=== PATIENT | male | born 1990 | race African-American/Black ===

== ENCOUNTER 2020-11-21 09:40 | Day surgery (SDC) | payer OTHER ==
[~2020-11-21] VITALS: Ht 180.3 cm; Wt 184.8 kg
[2020-11-21] MEDS ORDERED: FENTANYL PF 100 MCG/2ML ONE ×2 (09:58→11:38)
[2020-11-21] MEDS ORDERED: MIDAZOLAM 1 MG/ML, 2ML ONE (09:58)
[2020-11-21 10:16] VITALS: BP 160/101
[2020-11-21] MEDS ORDERED: LACTATED RINGERS 1,000 ML IV SCH (10:30)
[2020-11-21] MEDS ORDERED: CHLORHEXIDINE 15 ML UDC PO ONE (10:30)
[2020-11-21] MEDS ORDERED: LIDOCAINE/PF 1%-EPI 1:200K, 30 ML ONE (10:54)
[2020-11-21] MEDS ORDERED: LIDOCAINE 1%, 20ML ONE (10:55)
[2020-11-21] MEDS ORDERED: LIDOCAINE/MPF 2%-EPI 1:200K, 20 ML ONE (10:55)
[2020-11-21] MEDS ORDERED: DEXAMETHASONE 4 MG/ML, 1ML ONE (11:17)
[2020-11-21] MEDS ORDERED: KETOROLAC 30 MG/1 ML ONE (11:17)
[2020-11-21] MEDS ORDERED: FENTANYL PF 100 MCG/2ML IV PRN (11:30)
[2020-11-21] MEDS ORDERED: ALBUTEROL SULFATE 2.5 MG/3 ML NPPB PRN (11:30)
[2020-11-21] MEDS ORDERED: MEPERIDINE/PF 25MG/0.5ML IVPush PRN (11:30)
[2020-11-21] MEDS ORDERED: ACETAMINOPHEN 325 MG TABLET PO PRN (11:30)
[2020-11-21] MEDS ORDERED: OXYcodone 5 MG/5 ML ORAL.SOL UDC PO PRN (11:30)
[2020-11-21] MEDS ORDERED: PROMETHAZINE 25 MG/ML, 1ML IVPush PRN (11:30)
[2020-11-21] MEDS ORDERED: hydrALAzine 20 MG/ML, 1ML IV PRN (11:30)
[2020-11-21] MEDS ORDERED: LIDOCAINE/PF 1%-EPI 1:200K, 30 ML INFIL ONE (11:47)
[2020-11-21] MEDS ORDERED: FENTANYL PF 250 MCG/5ML ONE (11:51)
[2020-11-21] MEDS ORDERED: LIDOCAINE-MPF 2% ,5ML ONE (12:08)
[2020-11-21] MEDS ORDERED: SUCCINYLCHOLINE 20 MG/ML, 10ML ONE (12:08)
[2020-11-21] MEDS ORDERED: ROCURONIUM 10MG/ML,5ML ONE (12:08)
[2020-11-21] MEDS ORDERED: GLYCOPYRROLATE 0.2MG/1ML, 5ML ONE (12:08)
[2020-11-21] MEDS ORDERED: NEOSTIGMINE 1 MG/ML, 10ML ONE (12:08)
[2020-11-21] MEDS ORDERED: PROPOFOL 10 MG/ML, 20ML ONE (12:08)
[2020-11-21] MEDS ORDERED: CEFAZOLIN 1,000 MG ONE (12:08)
[2020-11-21] MEDS ORDERED: ONDANSETRON 2MG/ML, 2ML ONE (12:08)
[2020-11-21] MEDS ORDERED: hydrALAzine 20 MG/ML, 1ML ONE (13:37)
[2020-11-21] MEDS: LABETALOL 5MG/ML, 20ML IV PRN ×2 (13:38→14:06)
[2020-11-21] MEDS ORDERED: ACETAMINOPHEN 650 MG/20.3 ML UDC ONE (13:51)
[2020-11-21] MEDS ORDERED: LABETALOL 5MG/ML, 20ML ONE (14:04)
== END 2020-11-21 16:30 | disposition home or self-care (01) ==
LOC: OUT 09:40
PROVIDERS: ATTEND Surgery
DX: R22.0 Localized swelling, mass and lump, head (principal); L72.0 Epidermal cyst; E66.01 Morbid (severe) obesity due to excess calories; F12.90 Cannabis use, unspecified, uncomplicated; F17.210 Nicotine dependence, cigarettes, uncomplicated; Z20.822 Contact with and (suspected) exposure to COVID-19; Z68.43 Body mass index [BMI] 50.0-59.9, adult; Z79.899 Other long term (current) drug therapy
CPT/HCPCS: 11426; 12031; 88305; J0330; J0360; J0690; J1100; J1885; J2250; J2405; J2704; J3010; J7120; U0003; U0005; J2710